=== PATIENT | female | born 1960 | race Caucasian/White ===

== ENCOUNTER 2016-07-09 15:13 | Emergency (ER) | payer OTHER ==
[2016-07-09] MEDS ORDERED: MORPHINE 4 MG/ML SYR ONE ×2 (16:14→21:00)
== END 2016-07-09 21:23 | disposition home or self-care (01) ==
LOC: ER 15:13
DX: S52.501A Unspecified fracture of the lower end of right radius, initial encounter for closed fracture (principal); W01.0XXA Fall on same level from slipping, tripping and stumbling without subsequent striking against object, initial encounter; Y92.22 Religious institution as the place of occurrence of the external cause
CPT/HCPCS: 36415; 71020; 80053; 82553; 84484; 85025; 85610; 85730; 93005; 96372; 96374